=== PATIENT | male | born 1980 | race Hispanic/Latino ===

== ENCOUNTER 2018-12-29 08:54 | Observation (INO) ==
[2018-12-29] MEDS ORDERED: ASPIRIN PO ONE (09:01)
[2018-12-29] MEDS ORDERED: MORPHINE IV ONE (09:18)
[2018-12-29] MEDS ORDERED: NS 1,000 ML IV ONE ×2 (09:18)
--- NOTE | 2018-12-29 09:18 | PROVIDER DOCUMENTATION ---
HPI-General Adult - General Stated Complaint: CP Time Seen by Provider: 12/29/18 08:59 Source: patient Allergies/Adverse Reactions: Patient Allergies Allergy/AdvReac Type Severity Reaction Status Date / Time No Known Allergies Allergy Verified 12/29/18 09:41 Home Medications: Home Medication List Medication Instructions Recorded Confirmed Last Taken Type NK [No Home Medications] 12/29/18 12/29/18 Unknown History - History of Present Illness -Gen Adult Nature of Presenting Problems: Pt. is 38 yom that presents with c/o CP that began last night while drinking milk. Pt. reports he did a little cocaine last night and had been drinking beer. He states he feels SOB and that his heart feels like it is going to stop. He is diaphoretic. He denies any Nausea. He has no other complaints. EMS reports they gave the patient 325 mg ASA and 2 SL NTG. Location of Pain/Injury: reports: chest. denies: none, head, face, mouth, neck, upper extremity, hand(s), abdomen, back, pelvis, genitalia, lower extremity, feet, upper body, lower body, generalized, other Pain Radiation: reports: no radiation. denies: arm(s), back, buttocks, chest, epigastric, feet, groin, jaw, flank (L), legs (lower), LLQ, LUQ, neck, periumbilical, flank (R), RLQ, RUQ, shoulder(s), scapula, scrotal, sternal notch , suprapubic, legs (upper), urethral, vaginal, other Quality of Pain: reports: aching, tightness. denies: burning, indigestion, sharp, throbbing Severity: reports: moderate. denies: mild, severe Onset/Duration: reports: abrupt, last night Timing: reports: still present. denies: improving, intermittent, getting worse Context/Activities at Onset: reports: none. denies: light activity, moderate activity, vigorous activity, recent emotional stress, recent physical stress, recent trauma history, possible bad food, cold exposure, eating, out of country travel, rest, sleep, sexual activity, other Modifying Factors: improves with: nothing Associated Symptoms: reports: chest pain, shortness of breath. denies: denies symptoms, anxiety, arm pain, back/neck pain, constipation, cough, diaphoresis, diarrhea, dizziness, EENT symptoms, fatigue, fever/chills, genitourinary problems, headaches, heartburn, joint pain, loss of appetite, malaise, muscle aches, sinus congestion/drainage, nausea, rash, seizure, sensory/motor loss, pain with inspiration, swelling/mass in abdomen, syncope, vomiting, weakness, trouble walking, other Similar Symptoms Previously?: Yes Recently seen or treated by another doctor?: No Review of Systems - Adult - REVIEW OF SYSTEMS - ADULT Constitutional: reports: no symptoms reported Eyes: reports: no symptoms reported Ears, Nose, Mouth & Throat: reports: no symptoms reported Cardiovascular: reports: see HPI, chest pain. denies: heart murmur, orthopnea, syncope Respiratory: reports: see HPI, shortness of breath. denies: cough, dyspnea on exertion, pleurisy Gastrointestinal: reports: no symptoms reported Genitourinary: reports: no symptoms reported Musculoskeletal: reports: no symptoms reported Integumentary: reports: no symptoms reported Neurological: reports: no symptoms reported Psychiatric: reports: no symptoms reported Past History - Adult - PAST MEDICAL HISTORY-ADULT Review of Records: reports: Old Records Reviewed, Nursing Assessment Review, Medications Reviewed, Social history reviewed & non-contributory. - IMMUNIZATION STATUS Childhood Immunizations: See Nurse Assessment Flu Vaccine: See Nurse Assessment - FAMILY HISTORY Family History: reviewed, not pertinent - SOCIAL HISTORY Smoking: cigarettes, greater than 1 pack/day Provider spent 3-5 mins advising pt. on dangers of tobacco.: Discussed manners to quit use, and f/u contacts for add'l counseling. Physical Exam-General - PHYSICAL EXAM-ADULT Initial Vital Signs Reviewed: Yes - CONSTITUTIONAL General Appearance: alert, mild distress, anxious. negative: slow to respond, obtunded, combative - EYES Eyes: PERRL/EOMI, pink conjunctivae - HEAD, EARS, NOSE, MOUTH & THROAT HENMT: normocephalic/atraumatic, moist mucous membranes - NECK Neck: non-tender, supple, normal inspection - RESPIRATORY Respiratory: lungs clear, normal breath sounds - CARDIOVASCULAR Cardiovascular: regular rate, rhythm, no edema, tachycardia. negative: extra beats, friction rub, irregularly irregular - GASTROINTESTINAL (ABDOMEN) Abdominal Exam: normal bowel sounds, non tender, soft - LYMPHATIC Lymphatic: no adenopathy - MUSCULOSKELETAL Back Exam: normal inspection, no CVA tenderness, no vertebral tenderness Extremity: normal range of motion, non-tender, normal gait, normal inspection. negative: erythema, inflammation, tenderness Peripheral Pulses: radial (R): 2+, radial (L): 2+ - SKIN Integumentary: normal color, normal turgor, diaphoresis. negative: erythema, pallor, rash - NEUROLOGIC Neurologic: grossly normal, no motor/sensory deficits - PSYCHIATRIC Psych/Mental Status: normal thought content, normal thought process, oriented x 3, anxious. negative: depressed affect, paranoid, tearful Progress - PLAN OF CARE/RESULTS Progress/Plan/Lab Results: Orders Category Date Time Status Saline Loc NOW Care 12/29/18 09:00 Active CHEST-PORTABLE [RAD] Stat Exams 12/29/18 09:01 Ordered CBC WITH ELECTRONIC DIFF [HEME] Stat Lab 12/29/18 09:00 Uncollected CK PROFILE [SP CHEM] Stat Lab 12/29/18 09:00 Uncollected COMPREHENSIVE METABOLIC PANEL [CHEM] Stat Lab 12/29/18 09:01 Uncollected TROPONIN T Stat Lab 12/29/18 09:01 Uncollected URINALYSIS W/POSS RFLX CULT [URINALYSIS] Stat Lab 12/29/18 09:09 Uncollected URINE DRUG SCREEN Stat Lab 12/29/18 09:09 Uncollected Aspirin Med 12/29/18 09:01 Discontinued 325 mg PO NOW ONE EKG [EKG] Stat Ther 12/29/18 09:00 Ordered Laboratory Tests 12/29/18 12/29/18 12/29/18 09:10 09:10 10:10 WBC 10.24 RBC 4.70 Hgb 14.9 Hct 41.9 L MCV 89.1 MCH 31.7 H MCHC 35.6 RDW Std Deviation 12.5 Plt Count 305 MPV 11.3 H Immature Gran % (Auto) 0.4 Neut % (Auto) 56.4 Lymph % (Auto) 36.2 [place] % (Auto) 5.8 Eos % (Auto) 0.9 Baso % (Auto) 0.3 Immature Gran # (Auto) 0.04 Neut # (Auto) 5.78 Lymph # (Auto) 3.71 H [place] # (Auto) 0.59 Eos # (Auto) 0.09 Baso # (Auto) 0.03 Troponin T < 0.010 Urine Source CLEAN CATCH Heart Score = 2 Result Diagrams: 12/29/18 09:10 12/29/18 09:10 - EKG 1 Time of EKG reading by physician:: 09:05 EKG Read and Signed by:: Esteban Trinh EKG Interpretation (*Must complete 3 of following elements*): Abnormal Rate: 115 Rhythm: Sinus tach [place] Interval: normal ST Wave: normal - XRAY 1 XRAY Study: Chest ([facility] - [address] [facility], [address], [place] [address] [facility] - [address] , [place] [address] Department of Imaging Patient: JUANITA ANDERSONADM Date: 12/29/18#: [id number] : 1980ADM Status: PRE ERAcct#: [id number] Age/Sex: 38/MRoom/Bed: Loc: ED Ordering Physician: Carolina Schreiber Family Physician: None,PCP Reason for Procedure: chest pain Signed EXAM: CHEST- PORTABLE - 12/29/2018 HISTORY: chest pain TECHNIQUE: Portable chest COMPARISON: None. FINDINGS: Heart size is normal. Inspiration is mildly shallow. There is mild prominence of central vascular markings. There is no consolidation, pleural effusion, or pneumothorax identified. IMPRESSION: Mildly shallow inspiration. Mild prominence of central vascular markings. Electronically signed by Puma Ballesteros 12/29/2018 10:21 AM 12/29/18 1021 Interpreting Physician: Puma Ballesteros MD Dictated Date/Time: 12/29/18 1020 cc: aCrolina Schreiber; None,PCP) XRAY Interpretation: See note - CONSULTS/PCP/HOSPITALIST Notification #1 *Consult/PCP/Hospitalist*: Tavia Gonzalez Time Discussed: 13:18 Reason/Comments: Admission Consult Disposition: Will see in ED, Admit Departure - Departure Date of Disposition Decision: 12/29/18 Time of Disposition Decision: 12:44 DIAGNOSIS: Substance abuse, Hyperglycemia Chest pain Qualifiers: Chest pain type: unspecified Qualified Code(s): R07.9 - Chest pain, unspecified Disposition: ADMITTED INPATIENT 09 Certified Medical Emergency: Emergent Condition: Stable Referrals and Follow-Ups: None,PCP [Primary Care Provider] - - Critical Care Note This patient required my direct & personal management of CC.: No Attestation - Physician/ JIM Attestation Patient care was provided by Advanced Practice Provider:: Yes Advanced Practice Provider:: Carolina Schreiber Advanced Practice Provider documentation review:: The Mid-level provider documentation, treatment plan and medical decision making was reviewed by the physician who agrees with all treatment and medical decision making by the MLP. The physician spent face to face time with patient:: No Advanced Practice Provider documentation review:: Supervising physician onsite and consulted in the evaluation and care of this patient. The physician did not have a face to face encounter with the patient.
[2018-12-29 09:41] LABS: BASO# 0.03 X1000 (0.0-0.2); BASO% 0.3 % (0.0-0.8); EOS# 0.09 X1000 (0.0-0.7); EOS% 0.9 % (0.0-10.0); HEMATOCRIT 41.9 % (42.0-52.0); HEMOGLOBIN 14.9 g/dL (14.0-18.0); IMM GRAN# 0.04 X1000 (0.0-0.04); IMM GRAN% 0.4 % (0.0-0.5); LYMPH# 3.71 X1000 (1.2-3.4); LYMPH% 36.2 % (20.5-51.1); MCH 31.7 PG (27-31); MCHC 35.6 g/dL (33-37); MCV 89.1 FL (81-99); MONO# 0.59 X1000 (0.11-0.59); MONO% 5.8 % (1.7-9.3); MPV 11.3 FL (7.4-10.4); NEUT# 5.78 X1000 (1.4-6.5); NEUT% 56.4 % (42.2-75.2); PLT 305 X1000 (130-400); RDW 12.5 % (11.5-14.5); WBC 10.24 X1000 (4.8-10.8)
--- NOTE | 2018-12-29 09:54 | EKG Report ---
Test Performed on : 12/29/2018 09:03:19 AM Test Reason : CP Blood Pressure : / mmHG Vent. Rate : 115 BPM Atrial Rate : 115 BPM P-R Int : 150 ms QRS Dur : 084 ms QT Int : 336 ms P-R-T Axes : 059 -03 047 degrees QTc Int : 464 ms Sinus tachycardia. Possible Left atrial enlargement Borderline ECG No previous ECGs available Unconfirmed Result
[2018-12-29 10:18] LABS: URINE SOURCE CLEAN CATCH
[2018-12-29 10:22] LABS: BILIRUBIN URINE NEGATIVE (NEGATIVE); BLOOD URINE NEGATIVE (NEGATIVE); COLOR YELLOW; GLUCOSE URINE NEGATIVE (NEGATIVE); KETONE URINE 10 mg/dL (NEGATIVE); PROTEIN URINE TRACE mg/dL (NEGATIVE); SP GRAVITY URINE 1.022; TURBIDITY URINE CLEAR (CLEAR); UR EPITHELIAL CELLS <10 /HPF (<10); URINE BACTERIA NEGATIVE /HPF; URINE RBC <10 /HPF (<10); URINE WBC <10 /HPF (<10); UROBILINOGEN URINE NORMAL (NORMAL)
[2018-12-29 10:23] LABS: LEUKOCYTES URINE NEGATIVE (NEGATIVE); NITRITE URINE NEGATIVE (NEGATIVE)
--- NOTE | 2018-12-29 10:23 | Diag Imaging Result Doc PS360 ---
EXAM: CHEST-PORTABLE - 12/29/2018 HISTORY: chest pain TECHNIQUE: Portable chest COMPARISON: None. FINDINGS: Heart size is normal. Inspiration is mildly shallow. There is mild prominence of central vascular markings. There is no consolidation, pleural effusion, or pneumothorax identified. IMPRESSION: Mildly shallow inspiration. Mild prominence of central vascular markings. Electronically signed by Puma Ballesteros 12/29/2018 10:21 AM
[2018-12-29] MEDS ORDERED: NITROGLYCERIN TOP ONE (10:25)
[2018-12-29 10:28] LABS: AGAP 20; ALB/GLOB RATIO 1.6; ALBUMIN 5.1 g/dL (3.5-5.0); ALKALINE PHOSPHATASE 69 U/L (32-122); BUN 10 mg/dL (8-22); CALCIUM 9.9 mg/dL (8.8-10.2); CHLORIDE 98 mmol/L (98-107); CK PROFILE 159 U/L (24-204); COSMO 274; CREATININE 0.9 mg/dL (0.7-1.2); ESTIMATED GFR > 60; GLUCOSE 154 mg/dL (70-104); GOT 32 U/L (10-34); GPT 58 U/L (10-44); SODIUM 136 mmol/L (136-145); TCO2 18 mmol/L (25-35); TOTAL BILIRUBIN 0.56 mg/dL (0.20-1.00); TOTAL PROTEIN 8.3 g/dL (6.3-8.3)
[2018-12-29] MEDS ORDERED: PROTONIX IV ONE (10:29)
[2018-12-29] MEDS ORDERED: SODIUM CHLORIDE 0.9% INJ ONE (10:29)
[2018-12-29] MEDS ORDERED: G.I. COCKTAIL PO ONE (10:29)
[2018-12-29 10:47] LABS: UR AMPHETAMINES MT PRESUMPTIVE POS (NONE DETECT); UR BARBITUATES MT NONE DETECTED (NONE DETECT); UR BENZODIAZ MT NONE DETECTED (NONE DETECT); UR COCAINE MT PRESUMPTIVE POS (NONE DETECT); UR OPIATES MT PRESUMPTIVE POS (NONE DETECT)
[2018-12-29 10:48] LABS: UR CANNABIS MEDTOX NONE DETECTED (NONE DETECT); UR METHADONE MEDTOX NONE DETECTED (NONE DETECT); UR OXYCODONE MEDTOX NONE DETECTED (NONE DETECT); UR PCP MEDTOX NONE DETECTED (NONE DETECT)
--- NOTE | 2018-12-29 12:40 | EKG Report ---
Test Performed on : 12/29/2018 11:49:35 AM Test Reason : repeat Blood Pressure : / mmHG Vent. Rate : 083 BPM Atrial Rate : 083 BPM P-R Int : 154 ms QRS Dur : 088 ms QT Int : 364 ms P-R-T Axes : 065 007 049 degrees QTc Int : 427 ms Normal sinus rhythm. Normal ECG When compared with ECG of 29-DEC-2018 09:03, (Unconfirmed) No significant change was found Unconfirmed Result
--- NOTE | 2018-12-29 13:09 | ED EKG INTERP ---
This chart was entered by Leigh Little Scribe, acting as scribe for Esteban Trinh MD. EKG Interpretation - EKG Time of EKG reading by physician:: 11:49 EKG Read and Signed by:: Esteban Trinh EKG Interpretation (*Must complete 3 of following elements*): Normal Rate: 83 Rhythm: nsr [place]: normal QRS: normal GA Interval: normal ST Wave: normal Attestation - Physician/ JIM Attestation Patient care was provided by Advanced Practice Provider:: Yes Advanced Practice Provider documentation review:: The Mid-level provider documentation, treatment plan and medical decision making was reviewed by the ysician who agrees with all treatment and medical decision making by the MLP. The physician spent face to face time with patient:: No Advanced Practice Provider documentation review:: Supervising physician onsite and consulted in the evaluation and care of this patient. The physician did not have a face to face encounter with the patient. This chart was documented by the indicated scribe, (Leigh Little Scribe) and accurately reflects the services I performed and decisions made by me, Esteban Trinh MD, as attested by the provider's signature.
[2018-12-29] MEDS ORDERED: TYLENOL PO PRN (14:01)
[2018-12-29] MEDS ORDERED: ZOFRAN IV PRN (14:01)
[2018-12-29 14:52] LABS: ACETAMINOPHEN < 1.2 ug/mL (10-30); SALICYLATES < 3.00 mg/dL (3-10)
[2018-12-29 14:57] LABS: ACETONE SERUM NEGATIVE (NEGATIVE)
--- NOTE | 2018-12-29 15:57 | HISTORY AND PHYSICAL ---
PRESENTING COMPLAINT: Chest pain and left flank pain. HISTORY OF PRESENT COMPLAINT: Mr. Altamirano is a 38-year-old male with no remarkable past medical history except for a remote left kidney infection about a year ago in [place]. He presented this morning to the emergency department because of acute onset of chest pain. According to Mr. Altamirano, he had gone to the [employer] to buy some milk and some other groceries. Upon reaching home he just had this excruciating left-sided chest pain which seemed worse with every breath and any turn. That went on for a very long time. It was associated with difficulty breathing and the entire left arm became extremely painful. He thought he was going to I so he called 911 and he was brought in. Mr. Altamirano also refers that for the past week he has been having this on and off left flank to lower abdomen pain with no associated symptoms. Mr. Altamirano gives a history that about a year ago he was treated in [place] for a left kidney infection. Upon presenting to the emergency department, he was evaluated. He was found to be extremely hypertensive with a blood pressure 132/111, pulse of 125, respiration was 19, temperature 98.2 degrees. We have been consulted for admission. PAST MEDICAL HISTORY: Left kidney infection. FAMILY HISTORY: Positive for father who has cardiomyopathy. Mother couple years ago from uterine cancer and also diabetes mellitus. ALLERGIES: None. CURRENT MEDICATIONS: None. 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 He denies any smoking history. He does drink alcohol, especially on the weekends, about 6 beer on every weekend. Recreational drugs patient denies. However, in his urine toxicology is positive for cocaine, amphetamine and opioids. Vital Signs: Blood pressure is now 141/86, pulse of 71, respirations 18, temperature 99.3 degrees. General: Mr. Altamirano is 38 years old male. He is in bed no distress. HEENT: Mucosa is pink and moist. Anicteric. Acyanotic. Neck: Neck is supple. Chest: Clear to auscultation. No crepitations. No rhonchi. Cardiovascular: Regular rate and rhythm. No murmurs, no rubs, no gallops. Abdomen: Soft, nontender. Bowel sounds present. Extremities: Extremities no pedal edema. 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 Motor is 5/5. Sensation is intact. Cranial nerves 2-12 grossly examined, unremarkable. Psych: Patient is cooperative. LABORATORY DATA: CBC is reviewed is completely normal. Chemistry is also reviewed unremarkable. Initial troponin are 2 times are within normal range. Urine toxicology is positive for opioids, amphetamines, and cocaine. EKG on admission showed sinus tachycardia. A repeat after 2 hours showed normal sinus rhythm. There is no ST-segment or T-waves abnormality. A chest x-ray this morning showed mildly shallow inspiration, mild prominence of central vascular markings. ASSESSMENT: 1. Atypical chest pain with normal EKGs and normal troponin. However, on presentation Mr. Altamirano EKG did show sinus tachycardia. His blood pressure was very elevated. He was tachycardic and his urine toxicology is positive for cocaine and is very possible that this is cocaine induced coronary vasospasms that cause his pain. It could also have been something else since he seems to describe pleuritic type of chest pain. We will get a CT scan of the chest since the chest x-ray was unremarkable and then go from there. 2. Left flank pain. We will also do a CT scan of the abdomen to rule out any stone as a possible cause. Urinalysis was however unremarkable. 3. Recreational drug use. The patient urine toxicology was positive for cocaine, opioids and amphetamine. He has been counseled. 4. Alcohol use and abuse. Patient has been counseled. PLAN: 1. So today we are going to get a CT scan of the chest and abdomen and pelvis to rule out any potential etiologies for the patient presentation. Will control the pain and also have cardiology evaluate him. 2. We will give further recommendations during the hospital course as we get more available data. cc: Vini Gonzalez MD
[2018-12-29] MEDS: NS 1,000 ML IV SCH (16:17)
[2018-12-29] MEDS: NITROGLYCERIN TOP SCH ×2 (16:17→21:08)
--- NOTE | 2018-12-29 16:32 | Diag Imaging Result Doc PS360 ---
EXAM: CT ANGIOGRAM PULMONARY ARTERIES - 12/29/2018 HISTORY: pleuritic chest pain TECHNIQUE: CT angiogram pulmonary arteries with intravenous contrast. Axial, coronal, and 3-D MIP images are obtained. COMPARISON: None. FINDINGS: There are no filling defects identified in the pulmonary arteries. There is no indication of aortic dissection. There is some dependent atelectasis bilaterally. Lungs otherwise appear clear. There is no pleural effusion or pneumothorax identified. IMPRESSION: No evidence of pulmonary embolism. Dependent atelectasis. No indication of pneumonia. No pneumothorax. Electronically signed by Puma Ballesteros 12/29/2018 4:30 PM
--- NOTE | 2018-12-29 17:25 | CARDIOLOGY CONSULTATION ---
DATE: 12/29/2018 HISTORY OF PRESENT ILLNESS: A 38-year-old gentleman admitted with chest pain with no remarkable past medical history other than remote left kidney infection presented to the emergency room because of left-sided chest discomfort. He went to the gas station to buy some milk and groceries. [place] severe left-sided chest pain that seemed to be worse with breathing. He called EMS and was brought to the emergency room. Electrocardiogram did not reveal any ST-T changes to suggest ischemia. CT scan of his chest was unremarkable. Urine toxicology screen was positive for cocaine. In the emergency room, he was noted to be hypertensive with a blood pressure 132/111 and pulse rate of 125. PAST MEDICAL HISTORY: Left kidney infection. He is not known to have any significant past medical history. FAMILY HISTORY: Positive for cardiomyopathy in the father. MEDICATIONS: He not on any medications. SOCIAL HISTORY: He admits to smoking cocaine. He drinks about 6 beers on the weekend. PHYSICAL EXAMINATION: Vital Signs: Blood pressure at the time of my examination was 141/86. Cardiovascular: Normal jugular venous pressure. There is no thyromegaly. No carotid bruit. First and second heart sounds were heard. There was no S3 gallop. Respiratory System: Examination revealed normal air entry. There are no crepitations or rhonchi. Abdomen: Soft and nontender. There was no guarding or rigidity. Bowel sounds were heard. Central Nervous System: Alert and was moving all 4 extremities. Extremities: Revealed no pedal edema. HEENT: Atraumatic, normocephalic. Pupils were equal and reacting to light. LABORATORY DATA: Cardiac enzymes negative. Urine toxicology screen positive for cocaine. Also positive for opiates and amphetamine. CT scan of his chest revealed significant abnormality. IMPRESSION/RECOMMENDATIONS: 1. Chest pain secondary to cocaine. We will get an echocardiogram to assess cardiac and valvular function. 2. He has hypertension which would probably respond to lorazepam if required. 3. He is currently pain-free. We will set him up for a stress test as well to make sure there is no ischemia. Thank you for the consultation. We will follow during hospital course. cc: Edwar Landin MD
--- NOTE | 2018-12-29 17:54 | Diag Imaging Result Doc PS360 ---
EXAM: CT ABDOMEN/PELVIS W/WO CONTRAS - 12/29/2018 HISTORY: left flank pain. r/o stones vs pyelonephritis TECHNIQUE: CT abdomen/pelvis without with contrast. Images are obtained prior to and following intravenous contrast administration. COMPARISON: None. FINDINGS: There is no renal stone identified. The bilateral kidneys enhance homogeneously. There is no hydronephrosis. 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 There is no urinary bladder lesion identified. The urinary bladder is moderately distended. There is hepatomegaly with diffuse fatty infiltration of liver. There is no focal liver lesion identified. There are no abnormalities of the spleen, adrenal glands, or pancreas identified. There are no calcified gallstones or pericholecystic inflammation identified. There are no substantially enlarged lymph nodes identified. There is no evidence of bowel obstruction. The appendix is unremarkable. There is no substantial bowel wall thickening identified. There is no free air, free fluid, or abscess identified. IMPRESSION: No evidence of renal stone or hydronephrosis. No indication of pyelonephritis. 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 The urinary bladder is moderately distended. Hepatomegaly with fatty infiltration of the liver. This exam was performed using automated exposure control, adjustment of mA or kV according to patient size, and/or use of iterative reconstruction technique. Electronically signed by Puma Ballesteros 12/29/2018 5:52 PM
[2018-12-30] MEDS: NITROGLYCERIN TOP SCH ×2 (06:09→12:07)
[2018-12-30] MEDS: NS 1,000 ML IV SCH (06:10)
[2018-12-30 06:34] LABS: BASO# 0.03 X1000 (0.0-0.2); BASO% 0.3 % (0.0-0.8); EOS# 0.38 X1000 (0.0-0.7); EOS% 3.5 % (0.0-10.0); HEMATOCRIT 39.5 % (42.0-52.0); HEMOGLOBIN 13.7 g/dL (14.0-18.0); IMM GRAN# 0.03 X1000 (0.0-0.04); IMM GRAN% 0.3 % (0.0-0.5); LYMPH# 3.18 X1000 (1.2-3.4); LYMPH% 29.4 % (20.5-51.1); MCH 31.8 PG (27-31); MCHC 34.7 g/dL (33-37); MCV 91.6 FL (81-99); MONO# 0.88 X1000 (0.11-0.59); MONO% 8.1 % (1.7-9.3); MPV 11.2 FL (7.4-10.4); NEUT# 6.32 X1000 (1.4-6.5); NEUT% 58.4 % (42.2-75.2); PLT 268 X1000 (130-400); RBC 4.31 XMIL (4.7-6.1); RDW 12.6 % (11.5-14.5); WBC 10.82 X1000 (4.8-10.8)
--- NOTE | 2018-12-30 06:40 | Diag Imaging Result Doc PS360 ---
EXAM: CHEST-PORTABLE HISTORY: Chest Pain TECHNIQUE: Portable chest single view COMPARISON: 12/29/2018 FINDINGS: Poor inspiratory effort. The heart is not enlarged. The vessels are not distended. There are no infiltrates. No effusion identified. IMPRESSION: Negative exam. Electronically signed by Tyson Vance 12/30/2018 6:38 AM
[2018-12-30 06:52] LABS: AGAP 9; ALB/GLOB RATIO 1.4; ALBUMIN 4.1 g/dL (3.5-5.0); ALKALINE PHOSPHATASE 59 U/L (32-122); BUN 12 mg/dL (8-22); CALCIUM 8.8 mg/dL (8.8-10.2); CHLORIDE 102 mmol/L (98-107); CHOLESTEROL 176 mg/dL (0-200); COSMO 270; CREATININE 0.7 mg/dL (0.7-1.2); ESTIMATED GFR > 60; GLUCOSE 101 mg/dL (70-104); GOT 24 U/L (10-34); GPT 41 U/L (10-44); HDL 48 mg/dL (35-55); LDL 96 mg/dL; POTASSIUM 4.1 mmol/L (3.5-5.1); SODIUM 135 mmol/L (136-145); TCO2 24 mmol/L (25-35); TOTAL BILIRUBIN 0.87 mg/dL (0.20-1.00); TRIGLYCERIDES 159 mg/dL (39-160); VLDL 32 mg/dL
[2018-12-30] MEDS ORDERED: PRILOSEC PO SCH (07:00)
--- NOTE | 2018-12-30 07:27 | EKG Report ---
Test Performed on : 12/30/2018 07:20:51 AM Test Reason : CP Blood Pressure : / mmHG Vent. Rate : 062 BPM Atrial Rate : 062 BPM P-R Int : 176 ms QRS Dur : 096 ms QT Int : 412 ms P-R-T Axes : 034 -02 030 degrees QTc Int : 418 ms Normal sinus rhythm. Normal ECG When compared with ECG of 29-DEC-2018 11:49, (Unconfirmed) No significant change was found Confirmed by Maty Velasquez MD ([id number]) on 12/31/2018 8:30:11 AM
[2018-12-30] MEDS ORDERED: ASPIRIN PO SCH (09:00)
[2018-12-30 12:11] VITALS: BP 116/73
--- NOTE | 2018-12-30 12:59 | ECHO REPORT ---
ORDER DATE: 12/29/2018 INTERPRETING PHYSICIAN: Dr. Edwar Landin. ECHOCARDIOGRAPHIC MEASUREMENTS: 1. Interventricular septum: 1.1 cm. 2. Left ventricular posterior wall: 1.1 cm. 3. Diastolic diameter: 4.6 cm. 4. Left atrium: 3.7 cm. 5. Aorta: 3.7 cm. SUMMARY OF THE 2-DIMENSIONAL IMAGIN. Normal left ventricular cavity size. 2. Estimated ejection fraction of 65-70%. 3. Aortic valve leaflets were trileaflet. 4. Mitral valve was normal. 5. Tricuspid valve was normal. 6. Pulmonic valve was normal. 7. By Doppler studies, there was no aortic stenosis or regurgitation. 8. There is trace to mild mitral regurgitation. 9. Trace tricuspid regurgitation. Peak velocity across the tricuspid valve less than 2 m/sec. 10. There is trace pulmonary regurgitation. 11. There is no pericardial effusion or obvious intracardiac mass or thrombus seen. cc: Edwar Landin MD
--- NOTE | 2018-12-30 15:43 | Diag Imaging Result Document ---
PROCEDURE NAME: MYOCARDIAL PERF SCAN, STR/REST - 12/30/2018 EXERCISE SESTAMIBI INTERPRETATION: SUMMARY: The patient was administered 11.6 mCi of technetium-99m sestamibi, after which resting cardiac images were obtained. The patient was subsequently exercised on treadmill according to a Josias protocol and exercised for a total of 11 minutes and 29 seconds, achieving a maximum workload of stage 4 and 13.4 METS. With exercise, the heart increased from 72 beats per minute to 160 beats per minute, representing 87% of maximal age-predicted heart rate. The blood pressure increased from 128/84 to 135/85. With exercise, the patient denied chest discomfort. At peak exercise, the patient was administered 32.0 mCi of technetium-99m sestamibi, after which gated stress cardiac images were obtained. Baseline ECG demonstrated sinus rhythm and was within normal limits. With exercise, there were no diagnostic ST-segment changes. SPECT images were reconstructed in the short, horizontal long, and vertical long axes. Review of these images demonstrated homogeneous uptake of radiopharmaceutical on both stress and resting images. Gated images demonstrate a calculated left ventricular ejection fraction of 72% with symmetrical wall motion/thickening. CONCLUSIONS: 1. Good aerobic capacity. Target heart rate achieved. 2. Clinically negative for chest pain. 3. Electrocardiographically negative for exercise-induced myocardial ischemia. 4. Normal exercise sestamibi images. cc: MD Edwar Kilgore MD
--- NOTE | 2019-01-03 10:00 | DISCHARGE SUMMARY ---
ADMISSION DATE: 12/29/2018 DISCHARGE DATE: 12/30/2018 DISPOSITION: Home. FOLLOWUP VISIT: Dr. Landin CONSULTATION DURING THIS ADMISSION: Cardiology was consulted patient was seen by Dr. Landin. INVASIVE PROCEDURES DONE DURING THIS ADMISSION: None. IMAGING STUDIES OF SIGNIFICANCE: 1. A chest x-ray did show shallow inspiration effort. 2. An echocardiogram did show an ejection fraction of 65 to 70 percent with no wall motion abnormality. 3. A computed tomography angiography showed no evidence of pulmonary embolism. 4. A CT scan of the abdomen and pelvis showed no evidence of renal stone. No indication of pyelonephritis. 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 5. A repeat chest x-ray was negative. 6. A stress test showed good aerobic capacity. Clinically negative for chest. Negative exercise induced myocardial ischemia. ADMISSION DIAGNOSES: 1. Atypical chest pain. 2. Left flank pain. 3. Recreational drug use. 4. Alcohol use and abuse. DIAGNOSES AT THE TIME OF DISCHARGE: 1. Cocaine induced chest pain with ischemic workup negative. 2. 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 3. Alcohol use and abuse. Patient has been counseled. 4. Recreational drug use with urine toxicology positive for cocaine and amphetamines. PRESENTING COMPLAINT: Chest pain and left flank pain. HISTORY OF PRESENTING COMPLAINT: Mr. Altamirano is a 38-year-old male who came into the emergency department because of abdominal because of chest pain and also some abdominal pain. On presentation he was found to be tachycardic and hypertensive. His urine drug screen was also positive for cocaine. Initially he had denied. However, upon more questioning, he said that was the 1st time using it. Anyway upon presenting, he was evaluated. Imaging studies were unremarkable. EKG were also unremarkable and troponin were negative. However, because of cocaine involvement, it was thought that he needed to have stress test. Cardiology evaluated him. A stress test was done which was negative. Subsequently Mr. Altamirano symptoms all got resolved during the hospital course. He became normotensive and he was discharged in stable condition. He has been advised to stay away from recreational drugs and also alcohol cessation was discussed with him. All the discharge instructions discussed. The patient is supposed to follow up with Dr. Landin. TIME SPENT: The time spent for discharge was 37 minutes. cc: Vini Gonzalez MD
== END 2018-12-30 13:56 | disposition home or self-care (01) ==
LOC: SUPCPDRO → EDBD → 3N 08:54 → ED 08:54
PROVIDERS: ATTEND Internal Medicine